=== PATIENT | male | born 1990 | race Caucasian/White ===

== ENCOUNTER 2018-05-05 10:18 | Emergency (ER) | payer MEDICAID ==
[2018-05-05 10:30] VITALS: BMI 26.6
[2018-05-05 10:32] VITALS: BP 116/68; PULSE 86; RESP 18; TEMP 98.2; O2SAT 98
--- NOTE | 2018-05-05 11:53 | ED PDOC ---
Arrival/HPI - General Chief Complaint: Lower Extremity Problem/Injury Time Seen by Provider: 05/05/18 10:24 Historian: Patient - History of Present Illness Narrative History of Present Illness (Text): 05/05/18 11:55 27-year-old male presents today with foot pain swelling and ecchymosis since yesterday. Patient states while playing basketball he twisted the foot. Patient is complaining of pain over the lateral aspect of the foot. Patient denies numbness weakness or tingling in the extremity. No medications have been taken for pain at home and patient is refusing any medications for pain at present time. Past Medical History - Provider Review Nursing Documentation Reviewed: Yes - Travel History Have you recently traveled outside [place] w/in the past 3 mons?: No - Infectious Disease Hx of Infectious Diseases: None - Tetanus Immunization Tetanus Immunization: Unknown - Psychiatric Hx Depression: No Hx Emotional Abuse: No Hx Physical Abuse: No Hx Substance Use: No - Anesthesia Hx Anesthesia: No Hx Anesthesia Reactions: No Hx Malignant Hyperthermia: No - Suicidal Assessment Feels Threatened In Home Enviroment: No Family/Social History - Physician Review Nursing Documentation Reviewed: Yes Family/Social History: Unknown Family HX Smoking Status: Never Smoked Hx Alcohol Use: Yes Frequency of alcohol use: Socially Hx Substance Use: No Allergies/Home Meds Allergies/Adverse Reactions: Allergies No Known Allergies Allergy (Verified 12/18/11 19:51) Review of Systems - Review of Systems Constitutional: absent: Fatigue, Fevers Respiratory: absent: SOB, Cough Cardiovascular: absent: Chest Pain, Palpitations Gastrointestinal: absent: Abdominal Pain, Nausea, Vomiting Musculoskeletal: Arthralgias Skin: absent: Rash Neurological: absent: Headache, Dizziness Psychiatric: absent: Anxiety, Depression Physical Exam Vital Signs Reviewed: Yes Vital Signs Temp Pulse Resp BP Pulse Ox 05/05/18 10:31 98.2 F 86 18 116/68 98 Temperature: Afebrile Blood Pressure: Normal Pulse: Regular Respiratory Rate: Normal Appearance: Positive for: Well-Appearing, Non-Toxic, Comfortable Pain Distress: None Mental Status: Positive for: Alert and Oriented X 3 - Systems Exam Head: Present: Atraumatic Mouth: Present: Moist Mucous Membranes Respiratory/Chest: Present: Clear to Auscultation Cardiovascular: Present: Regular Rate and Rhythm Lower Extremity: Present: Edema, NORMAL PULSES, Normal ROM, Tenderness (Right foot: There is tenderness noted over the base of the fifth metatarsal. Positive ecchymosis noted along the lateral aspect of the foot.), Swelling, Neurovascularly Intact, Capillary Refill < 2 s, Other (no ankle tenderness. no achilles tendon tenderness). No: CALF TENDERNESS, Erythema, Deformity, Temperature Abnormalties Neurological: Present: GCS=15, Speech Normal Skin: Present: Warm, Dry, Normal Color. No: Rashes Psychiatric: Present: Alert, Oriented x 3 Medical Decision Making ED Course and Treatment: 05/05/18 12:26 Patient nontoxic well-appearing in no distress with stable vital signs X-rays of the foot: + fx 5th metatarsal pt refused medications for pain Patient placed in short leg posterior splint. crutches given for ambulation. I discussed all results in depth with the patient advised to followup with the orthopedist within the next 2 days. Return if symptoms worsen persist or new symptoms develop Patient verbalizes understanding of discharge instructions and need for immediate followup. All aspects of this case were discussed the attending of record. Impression: fracture, foot Motrin every 6 hours as needed for pain Rest, ice, compression, elevation Use crutches for ambulation Followup with the orthopedist within the next 2 days Followup with primary care physician within the next 2 days Return if symptoms worsen persist or if new symptoms develop - RAD Interpretation Radiology Orders: 05/05/18 11:02 FOOT RIGHT 3 VIEWS ROUTINE [RAD] Stat Procedures - Splinting Location: right foot Hand-Made Type: fiberglass Splint: short leg posterior splint Pre-Proc Neuro Vasc Exam: normal Post-Proc Neuro Vasc Exam: normal Disposition/Present on Arrival - Present on Arrival Any Indicators Present on Arrival: No History of DVT/PE: No History of Uncontrolled Diabetes: No Urinary Catheter: No History of Decub. Ulcer: No History Surgical Site Infection Following: None - Disposition Have Diagnosis and Disposition been Completed?: Yes Diagnosis: Fracture of metatarsal Disposition: HOME/ ROUTINE Disposition Time: 11:45 Patient Plan: Discharge Patient Problems: Current Active Problems Problem Status Onset Fracture of metatarsal Acute Condition: GOOD Discharge Instructions (ExitCare): Foot Fracture (DC) Additional Instructions: Motrin every 6 hours as needed for pain Rest, ice, compression, elevation Use crutches for ambulation Followup with the orthopedist/center director lead teacher within the next 2 days Followup with primary care physician within the next 2 days Return if symptoms worsen persist or if new symptoms develop Prescriptions: Ibuprofen [Motrin] 600 mg PO Q6H PRN #20 tab PRN Reason: pain/fever reduction Referrals: [facility] [Outside] - Follow up with primary [facility] [Outside] - Follow up with primary Isaac Zelaya DPM [Staff Provider] - Follow up with primary Andres Kirby III, MD [Medical Doctor] - Follow up with primary China Aldana DPM [Staff Provider] - Follow up with primary Angel Rodarte DPM [Staff Provider] - Follow up with primary [facility] at [Outside] - Follow up with primary [facility] [place] [Outside] - Follow up with primary Forms: [employer] [facility] (Korean), WORK NOTE
--- NOTE | 2018-05-05 13:29 | RAD ---
Date of service: 05/05/2018 PROCEDURE: Right Foot Radiographs. HISTORY: foot pain s/p twisting injury yesterday COMPARISON: None. TECHNIQUE: 3 views obtained. FINDINGS: BONES: There is a displaced transverse fracture through the base of the 5th metatarsal JOINTS: Normal. SOFT TISSUES: Normal. OTHER FINDINGS: None. IMPRESSION: There is a displaced transverse fracture through the base of the 5th metatarsal
== END 2018-05-05 12:33 | disposition home or self-care (01) ==
LOC: ED 10:18
DX: S92.351A Displaced fracture of fifth metatarsal bone, right foot, initial encounter for closed fracture (principal); X50.1XXA Overexertion from prolonged static or awkward postures, initial encounter; Y93.67 Activity, basketball; Y92.39 Other specified sports and athletic area as the place of occurrence of the external cause